=== PATIENT | female | born 2000 | race Caucasian/White ===

== ENCOUNTER 2022-06-06 14:56 | Outpatient (CLI) | payer OTHER, SELFPAY ==
[2022-06-06 15:13] VITALS: BP 111/67; PULSE 108; PULSE 85; O2SAT 97
[2022-06-06 15:14] VITALS: RESP 16; TEMP 36.6
[2022-06-06 15:52] LABS: Appearance Urine Clear (Clear); Bilirubin Urine Negative (Negative); Blood Urine Negative (Negative); Color Urine Yellow (Yellow); Glucose Urine Negative (Negative); Ketones Urine Negative (Negative); Leukocyte Esterase Urine Trace (Negative); Nitrite Urine Negative (Negative); Protein Urine Negative (Negative); Specific Gravity Urine 1.025 (1.000-1.030)
[2022-06-06 16:53] LABS: Squamous Epithelial Cell Urine Few (None-Few); WBC Urine 50-100 (0-5)
[2022-06-06 16:54] LABS: Bacteria Urine Many
--- NOTE | 2022-06-06 17:46 | PC.OBNST ---
NST Note NST Note Start: 06/06/22 15:11 Freq: ONCE Status: Active Protocol: Document 06/06/22 17:43 MMB (Rec: 06/06/22 17:46 MMB [id number]) NST Note 1 Para (# of births) 0 EDC 06/17/22 Gestational Age In Weeks & Days 38 Weeks & 3 Days Patient Presented with Complaint(s) of Pain If Pain, describe location pelvic pain Reactive Yes Appropriate for Gestational Age Yes RN Fransisco Urrutia RN Date 06/06/22 Reactive Yes Appropriate for Gestational Age Yes PRASANNA Drummond RN Date 06/06/22 OB NST charge Yes Complete NST Note via Write Note Yes The provider's electronic signature indicates the NST is reactive/appropriate for gestational age. *Note to provider: If an addendum is required, open the patient's chart and click on the note under the Nurse/Allied Health tab.
== END 2022-06-06 16:46 | disposition home or self-care (01) ==
LOC: OB OUT 15:05 → OB 15:06
PROVIDERS: PCP Surgery; Visit Provider Surgery
DX: O47.1 False labor at or after 37 completed weeks of gestation (principal); Z3A.38 38 weeks gestation of pregnancy
CPT/HCPCS: 59025; 81003; 81015; 87086; 99213

== ENCOUNTER 2022-06-09 23:48 | Outpatient (CLI) | payer OTHER, SELFPAY ==
[2022-06-10 00:40] LABS: Amnisure Rom* Negative
--- NOTE | 2022-06-10 01:33 | PC.OBNST ---
NST Note NST Note Start: 06/09/22 23:27 Freq: ONCE Status: Active Protocol: Document 06/10/22 01:32 AM (Rec: 06/10/22 01:33 AM [id number]) NST Note 1 Para (# of births) 0 EDC 06/17/22 Gestational Age In Weeks & Days 39 Weeks & 0 Days Patient Presented with Complaint(s) of Leaking fluid Reactive Yes Appropriate for Gestational Age Yes RN Bebeto RNC Date 06/10/22 Reactive Yes Appropriate for Gestational Age Yes RN Parker RN Date 06/10/22 OB NST charge Yes Complete NST Note via Write Note Yes The provider's electronic signature indicates the NST is reactive/appropriate for gestational age. *Note to provider: If an addendum is required, open the patient's chart and click on the note under the Nurse/Allied Health tab.
== END 2022-06-10 01:15 | disposition home or self-care (01) ==
LOC: OB OUT 23:48 → OB 23:48
PROVIDERS: PCP Surgery; Visit Provider Family Medicine
DX: O47.1 False labor at or after 37 completed weeks of gestation (principal); Z3A.39 39 weeks gestation of pregnancy
CPT/HCPCS: 59025; 84112; 99213

== ENCOUNTER 2022-11-03 07:24 | Day surgery (SDC) | payer OTHER, SELFPAY ==
[2022-11-03] VITALS (21 sets, daily range): BP systolic 107–121; BP diastolic 58–86; PULSE 72–101; RESP 16–22; TEMP 36–36.8; O2SAT 96–100; BMI 18.3
[2022-11-03] MEDS: LACTATED RINGERS 1000 ML 1,000 ML 100 ML IV (09:05)
[2022-11-03] MEDS: SODIUM CHLORIDE 0.9 % (FLUSH) 10 ML SYRINGE IVF (09:07)
[2022-11-03] MEDS: ETHYL CHLORIDE 1 APPLICATION 1 APPLIC TOPICAL (09:07)
[2022-11-03 09:09] LABS: Ur HCG Qualitative* Negative (Negative)
[2022-11-03] MEDS: CLINDAMYCIN 900 MG/50 ML-D5W IVPB (10:00)
[2022-11-03] MEDS: BUPIVACAINE 0.5% 30 ML INJECTION (10:09)
--- NOTE | 2022-11-03 10:26 | W.ANESCHARGE ---
Anesthesia Charges Start Date/Time Anesthesia Start Date: 11/03/22 Anesthesia Start Time: 09:50 Stop Date/Time Anesthesia Stop Date: 11/03/22 Anesthesia Stop Time: 11:14
--- NOTE | 2022-11-03 10:52 | PM.GSPRC ---
Operative Note Date of procedure: 11/03/22 Pre-op diagnosis: Biliary colic Post-op diagnosis: Same Type of Procedure: Laparoscopic cholecystectomy Indications: Patient is a 22-year-old female who presented to clinic with symptoms and clinical workup consistent with biliary colic. Risks and benefits of operative intervention were discussed at length with the patient. Risks included but was not limited to: Bleeding, infection, risk of damage to surrounding structures, possible need for additional procedures, possible need to convert to an open operation and postoperative complications such as pneumonia, pulmonary emboli or OR. All questions and concerns were addressed with the patient agreeing to proceed. Procedure Description: After discussing the risks and benefits of the procedure, the patient signed informed consent.? The operative site was marked and the patient was brought to the operating room and placed on the operating table in supine position.? Care was taken to pad the patient's pressure points.?? The patient was then intubated by anesthesia.?? The operative site was then prepped and draped in the usual sterile fashion.? A time-out was then performed. Entrance to the abdomen was gained via a 5 mm Visiport in the left upper quadrant. The abdomen was insufflated and briefly surveyed for signs of injury. There was none. 11 mm umbilical port was placed as well as 2 working ports along the right costal margin. Patient was then placed in reverse Trendelenburg position with the right side up. The gallbladder fundus was grasped and retracted cephalad. The infundibulum was grasped. A combination of hook cautery and blunt dissection was used to carefully dissect out the cystic duct and artery until they could clearly be seen entering the gallbladder without any intervening structures. The gallbladder was dissected off the cystic plate to achieve the critical view. Once this was achieved the cystic duct and artery were each clipped with 2 clips proximally and 1 clip distally and transected with the scissors. The gallbladder was then taken off of the liver bed. And removed from the abdomen using an Endo-Catch bag. The gallbladder bed was surveyed for hemostasis. A small amount of bile which had spilled was suctioned from the abdomen. The umbilical port fascia was closed with 0 Vicryl via the Benedict-Fermin. The remaining ports were then removed under direct vision. The skin was closed with absorbable subcuticular suture. Instrument sponge and needle counts were correct at the end of the case. The patient was then woken and transferred to the PACU in stable condition. Findings: Cholelithiasis Anesthesia: GETA Surgeon: Shweta Sesay MD Estimated blood loss (mL): 2 Specimen: Gallbladder Condition: stable Disposition: PACU
--- NOTE | 2022-11-03 11:13 | W.ANESCHARGE ---
Anesthesia Charges Start Date/Time Anesthesia Start Date: 11/03/22 Anesthesia Start Time: 09:50 Stop Date/Time Anesthesia Stop Date: 11/03/22 Anesthesia Stop Time: 11:14
[2022-11-03] MEDS: MEPERIDINE 25 MG/ML INJ 12.5 MG IVP (11:22)
--- NOTE | 2022-11-03 11:47 | SUR.PHASEI ---
Upon arrival to phase I, patient having episodes of full body twitching/shaking. Demorol given and warm blankets applied initially. Patient not responding to commands to open eyes. Dr. Phipps here to assess patient. Currently patient is still not responding to commands or sternal rub. Full body twitching is less frequent. Betito hugger was also applied as temp decreased down to 96.8. All other vitals stable on room air.
[2022-11-03] MEDS: fentaNYL 100 MCG/2 ML inj 50 MCG IVP (12:10)
[2022-11-03] MEDS: KETOROLAC 15 MG/ML inj IVP (12:45)
== END 2022-11-03 13:41 | disposition home or self-care (01) ==
PROVIDERS: PCP Family Medicine; Visit Provider Surgery
PROC: 0FT44ZZ Resection of Gallbladder, Percutaneous Endoscopic Approach (ICD-10-PCS; CPT 47562; principal; 2022-11-03 09:45)
DX: K80.10 Calculus of gallbladder with chronic cholecystitis without obstruction (principal)
CPT/HCPCS: 47562; 00790; 00840; 81025; 88304; J0330; J0665; J1100; J1170; J1885; J2175; J2250; J2405; J2704; J2710; J2795; J3010; J7120; S0077